=== PATIENT | female | born 1965 | race Caucasian/White ===

== ENCOUNTER 2022-08-20 18:46 | Inpatient (IN) | payer OTHER, MEDICAID ==
[~2022-08-20] VITALS: Ht 167.6 cm; Wt 53.5 kg
[2022-08-20 19:15] VITALS: BP 159/108
--- NOTE | 2022-08-20 19:25 | NUR ---
PT AMB TO BED 4.
[2022-08-20] MEDS ORDERED: AMPICILLIN/SULBACTAM 3 GM in NACL 0.9% 100 ML IV ONE (23:15)
[2022-08-20] MEDS ORDERED: KETOROLAC 30 MG/ML VIAL IVP ONE (23:15)
[2022-08-20] MEDS ORDERED: AMPICILLIN/SULBACTAM 3 GM VIAL ONE (23:28)
[2022-08-20 23:42] LABS: BASOPHILS % (AUTO) 0.3 % (0.0-2.0); EOSINOPHILS # (AUTO) 0.1 K/uL (0-0.4); EOSINOPHILS % (AUTO) 0.7 % (0.0-4.0); HEMATOCRIT 34.2 % (36-48); HEMOGLOBIN 11.5 g/dL (12.0-16.0); LYMPHOCYTES # (AUTO) 1.6 K/uL (2.5-16.5); MEAN CORPUSCULAR HEMOGLOBIN 29 pg (27-31); MEAN CORPUSCULAR HGB CONC 34 g/dL (33-37); MEAN CORPUSCULAR VOLUME 86.6 fL (80-94); MONOCYTES # (AUTO) 1.2 K/uL (0.8-1.0); MONOCYTES % (AUTO) 7.6 % (1.7-9.3); NEUTROPHILS # (AUTO) 12.7 K/uL (1.8-7.7); NEUTROPHILS % (AUTO) 81.4 % (42.2-75.2); PLATELET COUNT (AUTO) 474 K/uL (140-450); RED BLOOD CELL COUNT(AUTO) 3.95 MIL/uL (4.20-5.40); RED CELL DISTRIBUTION WIDTH 13.8 % (11.6-13.7); WHITE BLOOD COUNT (AUTO) 15.6 K/uL (4.8-10.8)
[2022-08-21 00:08] LABS: ALBUMIN 2.8 g/dL (3.4-5.0); ANION GAP 11.9 (8-16); CARBON DIOXIDE 29.5 mmol/L (21-32); CREATININE 0.6 mg/dL (0.6-1.3); POTASSIUM 4.4 mmol/L (3.5-5.1); TOTAL BILIRUBIN 0.1 mg/dL (0.0-1.0)
--- NOTE | 2022-08-21 00:08 | NUR ---
PT Taken to ct via benjie
--- NOTE | 2022-08-21 00:09 | NUR ---
Pt takento CT via gurney.
--- NOTE | 2022-08-21 00:19 | NUR ---
PT RETURNED FROM CT
[2022-08-21] MEDS ORDERED: ONDANSETRON 4 MG/2 ML VIAL IVP PRN (00:50)
[2022-08-21] MEDS ORDERED: MORPHINE SULFATE 2 MG/ML SYR IVP PRN (00:50)
[2022-08-21] MEDS ORDERED: ACETAMINOPHEN 325 MG TAB PO PRN (00:50)
[2022-08-21] MEDS ORDERED: cefTRIAXone 1,000 MG VIAL ONE (01:13)
[2022-08-21] MEDS: NACL 0.9% 1,000 ML IV SCH ×3 (01:20→16:50)
--- NOTE | 2022-08-21 04:19 | NUR ---
Pt ambulated to restroom with steady gait.
[2022-08-21 04:40] LABS: APPEARANCE,URINE CLEAR (CLEAR); BILIRUBIN,URINE NEGATIVE (NEGATIVE); BLOOD, URINE NEGATIVE (NEGATIVE); COLOR,URINE YELLOW (YELLOW); LEUKOCYTE ESTERASE ,URINE NEGATIVE (NEGATIVE); NITRITE, URINE NEGATIVE (NEGATIVE); UGLUCOSE NEGATIVE (NEGATIVE)
[2022-08-21] MEDS ORDERED: NAPR-1560 PO (06:49)
[2022-08-21] MEDS ORDERED: AZIT250T11 PO (06:49)
[2022-08-21] MEDS ORDERED: SULF-954 PO (06:49)
--- NOTE | 2022-08-21 07:30 | NUR ---
RECEIVED PT IN [place] [id number] ADMITTED FOR CELLULITIS. DENIES PAIN OR DISCOMFORT. NAD. SAFETY MAINTAINED
[2022-08-21 08:00] VITALS: BP 121/70
--- NOTE | 2022-08-21 08:40 | NUR ---
RECEIVED PT FROM ER NURSE. PT A/O X4. ABLE TO MAKE NEEDS KNOWN. NO SOB OR RESPIRATORY DISTRESS. ON RA. DENIES PAIN AT THIS TIME. STATES SHE HIT A METAL PIECE 3 WEEKS AGO. L LEG SWELLING, ERYTHEMA, WARM TO TOUCH, WITH NO OPEN WOUNDS. SKIN INTACT. L HAND #20 SL. NEEDS ALL MET AT THIS TIME. ALL SAFETY MEASURES IN PLACE.
--- NOTE | 2022-08-21 08:50 | NUR ---
IVF STARTED ON L HAND #20.
--- NOTE | 2022-08-21 10:39 | NUR ---
PATIENT HAS BEEN SCREENED AND CATEGORIZED LOW NUTRITION RISK. PATIENT WILL BE SEEN WITHIN 7 DAYS OF ADMISSION. 08/21/22-08/28/[address]
--- NOTE | 2022-08-21 14:00 | NUR ---
SPOKE WITH MD REGARDING PT REQUESTING FOR KETOROLAC FOR PAIN. PT STATES TYLENOL AND MORPHINE DOES NOT HELP WITH HER PAIN. MD ORDER KETOROLAC 30 MG IVP Q8H PRN.
[2022-08-21] MEDS ORDERED: KETOROLAC 30 MG/ML VIAL IVP PRN (14:05)
--- NOTE | 2022-08-21 14:26 | NUR ---
ASKED PT IF SHE WOULD LIKE PRN PAIN MED. PT STATES SHE WILL HAVE IT LATER. PT IN NO ACUTE DISTRESS. RR EVEN & UNLABORED. ALL NEEDS MET. ALL SAFETY MEASURES IN PLACE.
[2022-08-21 16:00] VITALS: BP 116/68
--- NOTE | 2022-08-21 18:28 | NUR ---
PT C/O SKIN TEAR OF L LEG. NOTED WITH YELLOW DRAINAGE. CLEANSED WITH NS, PAT DRY, ABDOMINAL PAD APPLIED. CONTACTED MD. MD ORDER FOR WOUND CONSULT AND WOUND CULTURE. OBSERVE PT WITH GOOD APPETITE. ALL QUESTIONS ANSWERED. PT IN NO ACUTE DISTRESS. ON RA. NO SOB NOTED. NEEDS ALL MET. ALL SAFETY MEASURES IN PLACE.
--- NOTE | 2022-08-21 19:16 | NUR ---
RECEIVED ENDORSEMENT FROM DAY SHIFT NURSE FOR CONTINUITY OF CARE. PT IS SLEEPING. PT IS WITH REGULAR DIET, IV SITE ON LEFT HAND 20G INTACT AND PATENT, IV FLUID INFUSING WELL AT 125 ML/HR. WILL ASSESS LEFT LEG WHEN PT IS AWAKE. PT NOTED RELAX, NO SOB OR DISTRESS.
--- NOTE | 2022-08-21 19:17 | NUR ---
BEDSIDE REPORT GIVEN TO NIGHTSHIFT NURSEARCHANA FOR CONTINUITY OF CARE.
[2022-08-21] MEDS ORDERED: LORazepam 1 MG TAB PO PRN (23:25)
[2022-08-21] MEDS ORDERED: ZOLPIDEM 10 MG TAB PO PRN (23:25)
--- NOTE | 2022-08-22 | NUR ---
ANTIBIOTIC ROCHEPHINE ADMINISTER.
[2022-08-22] MEDS: NACL 0.9% 1,000 ML IV SCH ×2 (00:50→11:45)
--- NOTE | 2022-08-22 01:00 | NUR ---
PT IS AWAKE AND CRY DUE TO HER LEFT LEG CELLULITIS. PATIENT STATED DOES NOT KNOW WHEN IS GOING TO HEAL. EXPLAINED DISEASE PROCESS. PT CALM.
--- NOTE | 2022-08-22 02:30 | NUR ---
OBTAINED BLISTERS DISCHARGE AND SENT TO LAB.
[2022-08-22 04:00] VITALS: BP 124/71
[2022-08-22 05:59] LABS: BASOPHILS # (AUTO) 0.1 K/uL (0.00-0.22); BASOPHILS % (AUTO) 0.5 % (0.0-2.0); EOSINOPHILS # (AUTO) 0.3 K/uL (0-0.4); HEMATOCRIT 34.4 % (36-48); HEMOGLOBIN 11.4 g/dL (12.0-16.0); LYMPHOCYTES # (AUTO) 1.8 K/uL (2.5-16.5); LYMPHOCYTES % (AUTO) 15.6 % (20.5-51.1); MEAN CORPUSCULAR HEMOGLOBIN 29 pg (27-31); MEAN CORPUSCULAR HGB CONC 33 g/dL (33-37); MEAN CORPUSCULAR VOLUME 87.1 fL (80-94); MONOCYTES # (AUTO) 0.7 K/uL (0.8-1.0); NEUTROPHILS # (AUTO) 8.6 K/uL (1.8-7.7); NEUTROPHILS % (AUTO) 74.9 % (42.2-75.2); PLATELET COUNT (AUTO) 462 K/uL (140-450); RED BLOOD CELL COUNT(AUTO) 3.95 MIL/uL (4.20-5.40); RED CELL DISTRIBUTION WIDTH 13.5 % (11.6-13.7); WHITE BLOOD COUNT (AUTO) 11.5 K/uL (4.8-10.8)
[2022-08-22 06:16] LABS: ALBUMIN 2.4 g/dL (3.4-5.0); ANION GAP 12.3 (8-16); CARBON DIOXIDE 26.1 mmol/L (21-32); CREATININE 0.5 mg/dL (0.6-1.3); MAGNESIUM 1.8 mg/dL (1.8-2.4); POTASSIUM 4.4 mmol/L (3.5-5.1); TOTAL BILIRUBIN 0.2 mg/dL (0.0-1.0)
--- NOTE | 2022-08-22 07:20 | NUR ---
RECEIVED REPORT FROM LUG LOADER NURSE FOR CONTINUITY OF CARE. PATIENT AWAKE NO DISTRESS NOTED RESPIRATION EVEN AND NOT LABORED NO SHORTNESS OF BREATH ON ROOM AIR. IV SITE ON LEFT HAND TIEN 20 RUNNING 125 CC/HOUR. ALL SAFETY MEASURE IN PLACE.
--- NOTE | 2022-08-22 08:00 | NUR ---
PT'S PLAN OF CARE WAS DISCUSSED TO LUMBER CUTTER
--- NOTE | 2022-08-22 09:43 | NUR ---
WOUND CARE NOTE: WOUND ASSESSMENT DONE TO THIS 56 Y/O PT. AAX4, LEFT LOWER LEG CELLULITIS, SKIN THIN EASILY TO TORN WITH ERYTHEMA, SWELLING AND A SUPERFICIAL SKIN TEAR 1.5X1CM TO [place] AREA, WOUND SITE DRY AND CLEAN, NO ODOR, TERRIE WOUND SKIN: INTACT BLISTERING SKIN 6CM IN DIAMETER, PAIN 2/10. POC DISCUSSED WITH PT. PT. VERBALIZES UNDERSTANDING. RECOMMENDATIONS: -CONTINUE IV ANTIBIOTIC TX. -CLEANSE RLE WOUND WITH WOUND CAR SOLUTION, PAT DRY, APPLY OIL EMULSION DRESSING AND COVER WITH COMPOSITE DRESSING DQ AND PRN IF SOILING.
--- NOTE | 2022-08-22 11:00 | NUR ---
PATIENT ON BED RESTING WITH CALL LIGHT WITH IN EASY REACH. ENCOURAGE TO ELEVATE LEG WHILE ON BED. PATIENT NO ADVERSE REACTION NOTED ON IV ANTIBIOTIC GIVEN THIS MORNING. CALL LIGHT WITH IN EASY REACH.
[2022-08-22] MEDS ORDERED: NON ADHERENT DRESSING TP SCH (13:00)
--- NOTE | 2022-08-22 13:42 | NUR ---
TREATMENT ON HER RIGHT LOWER LEG DONE NOTED WITH SLIGHT DRAINAGE SEROUS SANGUINOUS TOLERATED WELL. REQUESTED FOR TURKEY SANDWICH REPORTED THAT SHE DIDN'T LIKE HER LUNCH.
[2022-08-22] MEDS ORDERED: CLIN300C2 PO (15:01)
--- NOTE | 2022-08-22 15:27 | NUR ---
DC PLANNING SW MET WITH PATIENT AT BEDSIDE TO COMPLETE ASSESSMENT. PATIENT REPORTS RESIDING AT HOME WITH HER PARTNER AT THE ADDRESS LISTED ON FILE. PATIENT IDENTIFIED [facility] ES EMERGENCY CONTACT AND MDM. PATIENT DENIED HAVING AD IN PLACE AND DECLINED AD OFFERED BY JR. PATIENT REPORTS MEETING WITH PCP NEEDED, LAST VISIT 1 YR AGO. PATIENT DENIES TAKING MEDICATION AT THIS TIME AND DENIES BARRIERS IN ACCESS TO MEDICATION IF NEEDED. PATIENT REPORTS PICKING UP MEDICATION FROM [facility] [address] IN [place], WHEN NEEDED. PATIENT REPORTS PRIOR TO THIS VISIT, BEING AMBULATORY WITHOUT DME ASSISTANCE AND COMPLETES ALL ADL'S INDEPENDENTLY. PT DENIES MH/SA HX. PATIENT REPORTS HX OF CIGARETTES USE, PATIENT REPORTS NOT SMOKING IN SIX YEARS. 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 PT REPORTS DC PLAN IS TO RETURN HOME WHEN MEDICALLY STABLE WITH PARTNER PROVIDING TRANSPORTATION AND AIDING IN CARE, IF NEEDED.
--- NOTE | 2022-08-22 16:30 | NUR ---
PATIENT ALERT ORIENTED ABLE TO MAKE NEEDS KNOWN RESPIRATION EVEN AND NOT LABORED NO SHORTNESS OF BREATH. GIVEN DISCHARGE PACKET WITH INSTRUCTION VERBALIZED UNDERSTANDING. INFORM THAT SHE WILL BE FOLLOW UP WITH HOME HEALTH PER SYSTEM SUPPORT DEVELOPER THE HOME HEALTH WILL CALL HER AFTER DISCHARGE. GIVEN SUPPLY FOR WOUND TREATMENT. NAME BAND AND IV REMOVED WITH CATHETER INTACT. ALL BELONGING TAKE BY PATIENT. I WALK PATIENT TO HER CAR PARK IN FRONT OF ER SAFELY
== END 2022-08-22 16:30 | disposition home or self-care (01) | DRG 603 ==
LOC: MED 18:46 → EDBD 18:46 → MMU 08-21 00:54
PROVIDERS: ADMIT Hospitalist; ATTEND Hospitalist
DX: L03.116 Cellulitis of left lower limb (principal); E44.0 Moderate protein-calorie malnutrition; Z68.1 Body mass index [BMI] 19.9 or less, adult; Z20.822 Contact with and (suspected) exposure to COVID-19; Z79.899 Other long term (current) drug therapy
CPT/HCPCS: 36415; 73700; 80053; 81003; 83735; 85025; 87040; 87081; 96365; 96375; 99285; J0295; J0696; J1885; J2270; J2405; J7060